=== PATIENT | male | born 1970 | race Caucasian/White ===

== ENCOUNTER → 2024-02-02 07:38 | Outpatient (REF) | payer OTHER, SELFPAY | LOC: RAD 07:38 | PROVIDERS: ATTENDING PHYSICIAN Internal Medicine Endocrinology, Diabetes & Metabolism; FAMILY PHYSICIAN Internal Medicine | DX: E21.3 Hyperparathyroidism, unspecified (principal); M81.0 Age-related osteoporosis without current pathological fracture | CPT/HCPCS: 77080 ==

== ENCOUNTER → 2024-03-04 08:28 | Outpatient (REF) | payer OTHER, SELFPAY | LOC: RAD 08:28 | PROVIDERS: ATTENDING PHYSICIAN Internal Medicine Endocrinology, Diabetes & Metabolism; FAMILY PHYSICIAN Internal Medicine | DX: E03.9 Hypothyroidism, unspecified (principal); E21.3 Hyperparathyroidism, unspecified | CPT/HCPCS: 78071; A9500 ==

== ENCOUNTER → 2024-03-11 13:46 | Outpatient (REF) | payer OTHER, SELFPAY | LOC: HWRAD 13:46 | PROVIDERS: ATTENDING PHYSICIAN Internal Medicine Endocrinology, Diabetes & Metabolism; FAMILY PHYSICIAN Internal Medicine | DX: E03.9 Hypothyroidism, unspecified (principal) | CPT/HCPCS: 76536 ==

== ENCOUNTER 2024-04-23 06:22 | Day surgery (SDC) | payer OTHER, SELFPAY ==
[2024-04-09 12:17] VITALS: BMI 27.8
[2024-04-09 13:24] LABS: Hematocrit 43.8 % (39.0-52.0); Hemoglobin 13.7 g/dL (13.0-18.0); Mean Corp Hgb Conc. 31.3 g/dL (33.0-37.0); Mean Corpuscular Hgb 22.4 pg (27.0-31.0); Mean Corpuscular Volume 71.6 fL (80.0-94.0); Mean Platelet Volume 10.1 fL (7.4-10.4); Platelet Count 254 10^3/uL (130-400); Red Blood Cell Count 6.12 10^6/uL (4.70-6.10); Red Cell Dist. Width 19.2 % (11.5-14.5); White Blood Cell Count 5.3 10^3/uL (4.8-10.8)
[2024-04-09 13:30] LABS: INR 1.07; PT 13.8 Sec (11.4-14.6)
[2024-04-09 13:31] LABS: APTT 29.8 Sec (23.4-35.0)
[2024-04-09 14:12] LABS: ALT (SGPT) 90 U/L (0-50); AST (SGOT) 65 U/L (17-59); Albumin 4.5 g/dl (3.5-5.0); Alkaline Phosphatase 60 U/L (38-126); Blood Urea Nitrogen 22 mg/dl (9-20); Calcium 11.1 mg/dl (8.4-10.2); Carbon Dioxide 24 mmol/L (22-30); Chloride 105 mmol/L (98-107); Estimated Creatinine Clearance 83 ml/min; Glucose 88 mg/dl (70-99); Potassium 4.9 mmol/L (3.5-5.1); Sodium 137 mmol/L (135-145); Total Bilirubin 0.9 mg/dl (0.2-1.3); Total Protein 7.4 g/dl (6.3-8.2); eGFR > 60.00
[2024-04-23] VITALS (8 sets, daily range): BP systolic 110–137; BP diastolic 63–86; BMI 27.8
[2024-04-23] MEDS: TYLENOL 1000 MG PO (09:07)
[2024-04-23] MEDS: NEURONTIN 300 MG PO (09:07)
[2024-04-23] MEDS: NORMOSOL-R 1000 IV (09:09)
[2024-04-23] MEDS: HEPARIN 5000 UNITS SC (09:53)
[2024-04-23 10:49] LABS: Turbo PTH 214.1 pg/ml (13.6-85.8)
--- NOTE | 2024-04-23 11:05 | OR.RPT ---
Operative Report
Operative Report
Patient Name: Coleman Dumont
Date of : 1970
Date of Operation: April 23, 2024
Preoperative Diagnosis: �Parathyroid hyperparathyroidism - E210
Postoperative Diagnosis: Same
Surgeon: Hugo Jimenez M.D.
Operation: Minimally Invasive Left Inferior Parathyroidectomy - 73742
Anesthesia: GET
Estimated Blood Loss: 3 cc
Drains: None
Specimen: Left inferior neck nodule, rule out parathyroid adenoma
Complications: �None
Procedure:
The patient was taken to the operating room and placed in the usual supine position. After adequate general endotracheal anesthesia was established, the patient's neck was extended, prepped, and draped in the typical sterile fashion. A 4 cm
transcervical incision was made two fingerbreadths above the sternal notch. The skin incision was made with the #15 blade, and this was taken through the skin into the subcutaneous tissue. The underlying platysma muscle was divided, and subplatysmal
flaps were created superiorly to the thyroid cartilage and inferiorly to the sternal notch. Strap muscles were identified and at the midline.
The attention was turned to the left side of the neck. The left thyroid lobe was mobilized medially. During this process, the left recurrent laryngeal nerve was identified and preserved throughout the surgery. The left lower neck nodule was
identified and noted to be enlarged, excised, and sent to the pathology department, which showed a hypercellular parathyroid gland. The intraoperative PTH levels normalized.
After obtaining adequate hemostasis, the strap muscles were reapproximated with #3-0 Vicryl in a running fashion. The platysma muscle was reapproximated with #3-0 Vicryl in an interrupted fashion, and the skin was approximated with #4-0 Monocryl in
a running subcuticular fashion. The Steri-Strips and sterile dressings were placed. The patient tolerated the procedure well. The final instrument, needle, and sponge counts were correct. The patient was extubated and transferred to the PACU.
[2024-04-23 11:28] LABS: Turbo PTH 80.2 pg/ml (13.6-85.8)
--- NOTE | 2024-04-23 12:55 | SUR.PHASEI ---
minimal discomfort in pacu , vss, taking ice chips by choice, sister updated, dressing dry , no facial nerve deficit noted
== END 2024-04-23 13:20 | disposition home or self-care (01) ==
LOC: SDS 06:22
PROVIDERS: ATTENDING PHYSICIAN Surgery; FAMILY PHYSICIAN Internal Medicine; OTHER PHYSICIAN Internal Medicine Cardiovascular Disease
DX: D35.1 Benign neoplasm of parathyroid gland (principal); E21.0 Primary hyperparathyroidism
CPT/HCPCS: 60500; 88305; 88332; 36415; 80053; 83970; 85027; 85610; 85730; 88331